=== PATIENT | female | born 1990 | race Caucasian/White ===

== ENCOUNTER 2018-02-26 17:09 | Emergency (ER) | payer MEDICAID, OTHER ==
[~2018-02-26] VITALS: Ht 157.5 cm; Wt 47.6 kg
[~2018-02-26 17:09] MED LIST: ACET1TAB34 PO; HYDR-922 PO; PREN1TAB59 PO
--- NOTE | 2018-02-26 17:15 | NUR ---
ARRIVAL PT ARRIVED AMBULATORY TO ER 6 C/O LOWER ABDOMINAL PAIN RADIATING TO BACK. PT ALSO C/O NAUSEA, VOMITING AND DIARRHEA. PT STATES HAS HAD BLOOD IN HER VOMIT AND STOOL. PT STATES SHE HAS CHRONIC PAIN AND TAKES PERCOCET EVERY 4 HOURS AND IBUPROFEN 800MG THREE TIMES DAILY SINCE 2011 WHEN A NERVE WAS DAMAGED DURING CHOLECYSTECTOMY. EDP NOTIFIED OF PT ARRIVAL.
[2018-02-26] MEDS ORDERED: ZOFRAN ODT SL STA (17:28)
[2018-02-26] MEDS ORDERED: SUBLIMAZE IM STA (17:28)
--- NOTE | 2018-02-26 17:33 | ER.PDOC ---
General Chief Complaint: Requesting Medical Care Stated Complaint: FEMALE Time seen by MD: 17:33 Source: patient Exam Limitations: no limitations History of Present Illness Initial Comments Lower abdominal pain from her ovarian cyst for 1 week, no vaginal discharge Timing/Duration: 1 week Severity/Quality: moderate, sharpness Associated Symptoms: nausea/vomiting Exacerbated by: movements Relieved By: remaining still Allergies: Coded Allergies: peanut (Verified Allergy, Severe, 09/18/15) ketorolac (Verified Allergy, Intermediate, RASH, HIVES, 09/18/15) mupirocin (Verified Allergy, Intermediate, PROJECTILE VOMITING, 09/18/15) tramadol (Verified Allergy, Intermediate, RASH, HIVES, 09/18/15) morphine (Verified Adverse Reaction, Severe, 09/18/15) HEADACHE Home Meds Reported Medications Vits W-Ca,Fe,Fa(<1MG) ( VITAMINS) 1 Each Tablet, 1 TAB PO DAILY , #90 TAB 3 Refills 09/15/15 Acetaminophen With Codeine (TYLENOL-COD #3 TABLET) 1 Each Tablet, 1 EACH PO Q4H PRN for PAIN, #30 TAB 09/15/15 Hydrocodone Bit/Acetaminophen (NORCO 10-325 TABLET) 10-325 T1 Ea Tab, 1 TAB PO BID, #60 TAB 09/15/15 Past Medical History Medical History: other Surgical History: appendectomy, cholecystectomy Social History Drug Use: other Reviewed Nursing Reviewed: Vital Signs, Abn. Noted Constitutional: no symptoms reported EENTM: no symptoms reported Respiratory: no symptoms reported Cardiovascular: no symptoms reported Gastrointestinal: see HPI Genitourinary: see HPI All Other Systems: Reviewed and Negative Physical Exam General Appearance: No Apparent Distress HEENT: PERRL/EOMI, Normal ENT Inspection, TMs Normal, Pharynx Normal Neck: Non-Tender, Full Range of Motion, Supple, Normal Inspection Respiratory: chest non-tender, lungs clear, normal breath sounds, no respiratory distress, no accessory muscle use Cardiovascular: Normal Peripheral Pulses, Regular Rate, Rhythm, No Edema, No Gallop, No JVD, No Murmur Gastrointestinal: Normal Bowel Sounds, No Organomegaly, No Pulsatile Mass, Tenderness (l inguinal area) Back: Normal Inspection, No CVA Tenderness, No Vertebral Tenderness Extremities: Normal Range of Motion, Non-Tender, Normal Inspection, No Pedal Edema, No Calf Tenderness, Normal Capillary Refill, Pelvis Stable Neurologic/Psychiatric: pastry decorator II-XII NML as Tested, No Motor/Sensory Deficits, Alert, Normal Mood/Affect, Oriented x 3 Skin: Normal Color, Warm/Dry Lymphatic: No Adenopathy Progress Progress DR HINOJOSA EKG/XRAY/CT/US Utrasound Comments: See report Course Vitals & review Data Current Medications Medications (Trade) Dose Ordered Sig/Fernando PRN Reason Start Time Stop Time Status Last Admin Fentanyl Citrate (Sublimaze) 100 mcg STAT STAT 02/26/18 17:28 02/26/18 17:29 Ondansetron HCl (Zofran Odt) 4 mg STAT STAT 02/26/18 17:28 02/26/18 17:29 Departure Time of Disposition: 19:52 Disposition: 01 HOME, SELF-CARE Impression: Primary Impression: Pelvic pain Condition: Stable Referrals: MAGNO MARAVILLA (PCP) PRIMARY CARE PROVIDER Additional Instructions: Tylenol #3 Zofran F/U with your Theatrical Scenic Designer as scheduled. Duration or Time Spent with Pa: 2 hours GEORGINA YAP MD Feb 26, 2018 17:33 PETER HINOJOSA MD Feb 26, 2018 19:56
[2018-02-26 17:47] LABS: BASOPHIL % 0.1 % (0.0-0.2); EOSINOPHIL # 0.1 10^3/uL (0.0-0.2); EOSINOPHIL % 1.1 % (0.0-5.0); HEMOGLOBIN 13.4 g/dL (12.0-15.0); LYMPHOCYTES # 1.3 10^3/uL (1.0-4.8); LYMPHOCYTES % 11.9 % (24.0-44.0); MEAN CELL HGB 29.3 pg (26-34); MEAN CELL HGB CONCENTRATION 34.4 g/dL (33-37); MEAN CORP VOLUME 85.1 fL (78-100); MEAN PLATELET VOLUME 9.8 fL (7.8-11.0); MONOCYTES % 8.9 % (5.0-12.0); NEUTROPHIL # 8.3 10^3/uL (1.8-7.7); NEUTROPHILS % 77.8 % (41.0-85.0); RED CELL DISTRIBUTION WIDTH 13.2 % (11.5-14.5); WHITE BLOOD CELL 10.6 10^3/uL (4.5-11.0)
--- NOTE | 2018-02-26 17:50 | NUR ---
US NEWSOME FROM RADIOLOGY INFORMED US THAT US WAS IN THE MIDDLE OF PROCEDURE AND WOULD BE WITH US WHEN SHE FINISHED.
[2018-02-26 17:52] VITALS: BP 120/81
[2018-02-26] MEDS ORDERED: SUBLIMAZE ONE (17:54)
[2018-02-26] MEDS ORDERED: ZOFRAN ODT ONE (17:54)
[2018-02-26 18:02] LABS: CALCIUM 8.8 mg/dL (8.4-10.5); CARBON DIOXIDE 24.7 mmol/L (20.0-32)
[2018-02-26 18:18] LABS: BILIRUBIN,URINE NEGATIVE (NEGATIVE); UROBILINOGEN,URINE NORMAL (NEGATIVE)
[2018-02-26 18:30] LABS: APPEARANCE,URINE CLEAR (CLEAR); UA COLOR YELLOW (YELLOW)
[2018-02-26 18:54] VITALS: BP 133/84
--- NOTE | 2018-02-26 19:02 | NUR ---
US PT BACK TO ROOM FROM US AT THIS TIME.
--- NOTE | 2018-02-26 19:36 | DIREP ---
PROCEDURE:US PELVIS COMPLETE COMPARISON:None. INDICATIONS:L inguinal pain TECHNIQUE:Pelvic ultrasound using transabdominal technique. Endovaginal images were also obtained for better assessment of the uterus and adnexa. FINDINGS: UTERUS:Anteverted. Normal size and echogenicity, measuring 6.7 x 5.3 x 3.7 cm. The myometrium is homogeneous. ENDOMETRIUM:Thickness is at the upper limits of normal for a premenopausal female, measuring 2.0 cm. RIGHT OVARY:Normal size and appearance, measuring 3.4 x 2.9 x 2.3 cm. A 2.3 cm corpus luteum/recently ruptured follicle is present. No cyst or solid mass. LEFT OVARY:Normal size and appearance, measuring 2.3 x 1.7 x 1.4 cm. Normal physiologic follicles. No cyst solid mass. CUL-DE-SAC:Trace physiologic pelvic free fluid. OTHER:Negative. CONCLUSION: 1. Endometrial thickness is the upper limits of normal for the patient's age, measuring 2.0 cm. This may be secondary to the phase of the patient's menstrual cycle. Endometrial hyperplasia and/or polyps are an additional consideration. Correlate for history of abnormal uterine bleeding. If indicated, follow-up ultrasound could be performed in 6 weeks for further evaluation. 2. 2.3 cm right ovarian corpus luteum/recently ruptured follicle, which is normal for age. The right ovary is otherwise unremarkable. 3. Normal left ovary. 4. Trace physiologic pelvic free fluid. Dictated by: Fabricio Galvan MD on 02/26/2018 at 07:27 PM
[2018-02-26 20:15] VITALS: BP 133/84
== END 2018-02-26 20:11 | disposition home or self-care (01) ==
LOC: ER 17:09
DX: R10.2 Pelvic and perineal pain (principal); R11.2 Nausea with vomiting, unspecified; N83.292 Other ovarian cyst, left side; Z91.010 Allergy to peanuts; Z88.1 Allergy status to other antibiotic agents; Z88.5 Allergy status to narcotic agent; Z88.6 Allergy status to analgesic agent; Z79.891 Long term (current) use of opiate analgesic; Z90.49 Acquired absence of other specified parts of digestive tract
CPT/HCPCS: 36415; 76830; 76856; 80053; 80307; 81000; 82150; 83690; 85025; 85610; 85730; 86677; 87086; 96372; 99285; J3010; Q0162

== ENCOUNTER 2019-09-07 19:41 | Emergency (ER) | payer OTHER ==
[~2019-09-07] VITALS: Ht 157.5 cm; Wt 52.2 kg
[~2019-09-07 19:41] MED LIST changes: +HYDR-3470 PO; -HYDR-922 PO
[2019-09-07 19:43] VITALS: BP 114/76
[2019-09-07 19:48] VITALS: BP 114/76
[2019-09-07] MEDS ORDERED: ZOFRAN ODT SL STA (19:58)
[2019-09-07] MEDS ORDERED: TYLENOL PO STA (19:58)
[2019-09-07] MEDS ORDERED: NS 1000ML 1,000 ML IV ONE (20:00)
--- NOTE | 2019-09-07 20:05 | NUR ---
ARRIVAL PT ARRIVED TO ER 3 VIA EMS STRETCHER WITH C/O LOWER ABD PAIN, BACK OF HEAD PAIN, NECK PAIN. PT STATES "EXTREME PAIN" WHEN URINATING. PT WAS SITTING ON TOILET AND BATHROOM AND GOT DIZZY AND FELL HITTING HEAD ON SINK. PT UNABLE TO DETERMINE IF OR HOW LONG SHE WAS UNCONSCIOUS. PT IS AAOX3.
[2019-09-07] MEDS ORDERED: ZOFRAN ODT ONE (20:06)
[2019-09-07] MEDS ORDERED: NS 1000ML 1,000 ML ONE ×2 (20:06→21:34)
[2019-09-07] MEDS ORDERED: TYLENOL PO ONE (20:07)
[2019-09-07 20:08] LABS: BILIRUBIN,URINE NEGATIVE (NEGATIVE); UROBILINOGEN,URINE NORMAL (NEGATIVE)
--- NOTE | 2019-09-07 20:09 | ER.PDOC ---
General Chief Complaint: Trauma Stated Complaint: FALL FROM STANDING Time seen by MD: 20:05 Source: patient, EMS Exam Limitations: no limitations History of Present Illness Initial Comments pt states she passed out after going to the bathroom to void; she struck her head and sustained unknown duration LOC; she c/o headache and right flank pain; she relates the right flank pain to a kidney stone she was diagnosed with 1 month ago Occurred: just prior to arrival Where: home Severity: moderate Location: occipital Method of Injury: fell Associated symptoms: Lost consciousness Remembers: injury, coming to hospital Allergies: Coded Allergies: peanut (Verified Allergy, Severe, 09/18/15) ketorolac (Verified Allergy, Intermediate, RASH, HIVES, 09/18/15) mupirocin (Verified Allergy, Intermediate, PROJECTILE VOMITING, 09/18/15) tramadol (Verified Allergy, Intermediate, RASH, HIVES, 09/18/15) morphine (Verified Adverse Reaction, Severe, 09/18/15) HEADACHE Home Meds Reported Medications Vits W-Ca,Fe,Fa(<1MG) ( VITAMINS) 1 Each Tablet, 1 TAB PO DAILY, #90 TAB 3 Refills 09/15/15 Acetaminophen With Codeine (TYLENOL-COD #3 TABLET) 1 Each Tablet, 1 EACH PO Q4H PRN for PAIN, #30 TAB 09/15/15 Hydrocodone Bit/Acetaminophen (NORCO 10-325 TABLET) 10-325 T1 Ea Tab, 1 TAB PO BID, #60 TAB 09/15/15 Past Medical History Medical History: other (history of kidney stone, rx'd 10 mg norco's--took 2 of these before fall) Surgical History: appendectomy, cholecystectomy, tubal Social History Alcohol Use: none Drug Use: none Review of Systems Constitutional: no symptoms reported Eyes: no symptoms reported Ears, Nose, Mouth, Throat: no symptoms reported Respiratory: no symptoms reported Cardiovascular: no symptoms reported Gastrointestinal: no symptoms reported Genitourinary: pain (right flank pain) Psychiatric/Neurological: see HPI, headache, other (syncope with HI and + LOC) Physical Exam General Appearance: Alert, No Apparent Distress Head: No Evidence of Injury Eye: PERRL Cardiovascular/Respiratory: Regular Rate, Rhythm Gastrointestinal: Normal Bowel Sounds, Non Tender, Soft Back: CVA Tenderness (R) Extremities: Normal Range of Motion, Non-Tender, Normal Inspection, No Pedal Edema, No Calf Tenderness NEURO/PSYCH: Alert, Oriented x3, Cooperative, Interactive Cranial Nerves: Normal Hearing, Normal Speech, PERRL Skin: Normal Color, Warm/Dry Lymphatic: No Adenopathy [place] Coma Score Best Eye Response: (4) Open Spontaneously Best Verbal Response: (5) Oriented Best Motor Response: (6) Obeys Commands Results/Orders Results/Orders Orders - SHANELLE COY DO Cbc With Auto Diff (09/07/19 19:58) Comprehensive Metabolic Panel (09/07/19 19:58) Urinalysis (09/07/19 19:58) Ekg-Routine (09/07/19 19:58) Ct Head Wo Contrast (09/07/19 19:58) Saline Lock (09/07/19 19:58) Ct Abd/Pelvis Wo Iv Contrast (09/07/19 19:58) Hcg Qualitative Serum (09/07/19 19:58) 0.9 % Sodium Chloride (Ns 1000ml) (09/07/19 20:00) Acetaminophen (Tylenol) (09/07/19 19:58) Ondansetron (Zofran Odt) (09/07/19 19:58) 0.9 % Sodium Chloride (Ns 1000ml) (09/07/19 20:06) Ondansetron (Zofran Odt) (09/07/19 20:06) Acetaminophen (Tylenol) (09/07/19 20:07) Urine Culture (09/07/19 20:00) Ondansetron Hcl/Pf (Zofran) (09/07/19 20:39) Ketorolac Tromethamine (Toradol) (09/07/19 20:39) Ketorolac Tromethamine (Toradol) (09/07/19 20:40) Ondansetron Hcl/Pf (Zofran) (09/07/19 20:40) Morphine Sulfate (Morphine Sulfate) (09/07/19 21:28) 0.9 % Sodium Chloride (Ns 1000ml) (09/07/19 21:34) Us Pelvic Non Ob (09/07/19 21:36) Morphine Sulfate (Morphine Sulfate) (09/07/19 21:40) Us Tv-Rug Hooker (09/07/19 21:41) Vital Signs Date Time Temp Pulse Resp B/P (MAP) Pulse Ox O2 Delivery O2 Flow Rate FiO2 09/07/19 22:44 79 20 107/58 (74) 98 Room Air 09/07/19 21:17 88 20 124/70 (88) 99 Room Air 09/07/19 19:48 18 09/07/19 19:48 98.2 92 20 114/76 (89) 97 Room Air 09/07/19 19:43 98.2 92 20 09/07/19 19:43 98.2 92 20 97 Administered Medications Medications (Trade) Dose Ordered Sig/Fernando Route PRN Reason Start Time Stop Time Status Last Admin Dose Admin Acetaminophen (Tylenol) 1,000 mg STAT STAT PO 09/07/19 19:58 09/07/19 20:06 DC 09/07/19 20:14 1,000 MG Ketorolac Tromethamine (Toradol) 30 mg STAT STAT IV 09/07/19 20:40 09/07/19 20:42 DC 09/07/19 20:46 30 MG Morphine Sulfate (Morphine Sulfate) 4 mg STAT STAT IV 09/07/19 21:40 09/07/19 21:41 DC 09/07/19 21:43 4 MG Ondansetron HCl (Zofran Odt) 4 mg STAT STAT SL 09/07/19 19:58 09/07/19 20:06 DC 09/07/19 20:14 4 MG Ondansetron HCl (Zofran) 4 mg STAT STAT IV 09/07/19 20:40 09/07/19 20:42 DC 09/07/19 20:46 4 MG Sodium Chloride 1,000 ml @ 1,200 mls/hr Q50M ONCE IV 09/07/19 20:00 09/07/19 20:49 DC 09/07/19 20:14 1,200 MLS/HR Laboratory Tests Test 09/07/19 20:00 09/07/19 20:13 Urine Collection Type VOID Urine Color YELLOW (YELLOW) Urine Appearance CLOUDY (CLEAR) H Urine Bilirubin NEGATIVE MG/DL (NEGATIVE) Urine Ketones NEGATIVE (NEGATIVE) Urine Specific [place] 1.000 (1.005-1.035) Urine pH 7 (5.0-6.0) Urine Protein NEGATIVE (NEGATIVE) Urine Urobilinogen NORMAL (NEGATIVE) Urine Nitrate NEGATIVE (NEGATIVE) Urine Leukocyte Esterase 500/uL 2+ (NEGATIVE) Urine Blood 25 1+ (NEGATIVE) H Urine RBC 0-2 RBC/HPF (NONE SEEN) Urine WBC 0-2 WBC/HPF (0-2) Urine Squamous Epithelial Cells MANY #/HPF (FEW) Urine Bacteria FEW (NONE SEEN) H Urine Glucose NORMAL (NEGATIVE) White Blood Count 7.9 10^3/uL (4.5-11.0) Red Blood Count 4.87 10^6/uL (4.00-5.20) Hemoglobin 13.8 g/dL (12.0-15.0) Hematocrit 41.0 % (36.0-46.0) Mean Corpuscular Volume 84.2 fL (78-100) Mean Corpuscular Hemoglobin 28.3 pg (26-34) Mean Corpuscular Hemoglobin Concent 33.7 g/dL (33-36.5) Red Cell Distribution Width 15.6 % (11.5-14.5) H Platelet Count 241 10^3/uL (150-400) Mean Platelet Volume 9.8 fL (7.8-11.0) Neutrophils (%) (Auto) 80.1 % (41.0-85.0) Lymphocytes (%) (Auto) 14.5 % (24.0-44.0) L Monocytes (%) (Auto) 4.7 % (5.0-12.0) L Neutrophils # (Auto) 6.3 10^3/uL (1.8-7.7) Lymphocytes # (Auto) 1.15 10^3/uL1 (1.0-4.8) Monocytes # (Auto) 0.4 10^3/uL (0.3-0.8) Absolute Immature Granulocyte (auto 0.01 10^3 u/L (0-2) Absolute Eosinophils (auto) 0.0 10^3/uL (0.0-0.2) Immature Granulocytes % 0.10 % (0.00-0.50) Eosinophils % 0.5 % (0.0-5.0) Basophils % 0.1 % (0.0-0.2) Basophils # 0.0 10^3/uL (0.0-0.1) Sodium Level 140 mmol/L (132-145) Potassium Level 4.2 mmol/L (3.6-5.2) Chloride Level 107.0 mmol/L (96-109) Carbon Dioxide Level 22.6 mmol/L (20.0-32) Anion Gap 14.6 Blood Urea Nitrogen 12 mg/dL (7-18) Creatinine 0.58 mg/dL (0.59-1.40) L Estimated GFR () 149.8 (>/=60) Est GFR (CKD-EPI)(Non-Afr Somali) 123.8 (>/=60) BUN/Creatinine Ratio 20.0 Glucose Level 110 mg/dL (70-110) Calcium Level 8.9 mg/dL (8.4-10.5) Total Bilirubin 0.4 mg/dL (0.2-1.0) Aspartate Amino Transferase (AST) 24 U/L (0-35) Alanine Aminotransferase (ALT) 44 U/L (12-78) Alkaline Phosphatase 81 U/L (50-136) Total Protein 8.2 g/dL (6.4-8.2) Albumin 4.1 g/dL (3.4-5.0) Globulin 4.1 Serum HCG, Qualitative NEGATIVE (NEGATIVE) Progress Progress Patient's toradol "allergy" = nausea; her morphine "allergy" = headache; when I explained she would not be receiving Dilaudid for her pain, she acquiesced to receive toradol or morphine EKG/XRAY/CT/US EKG: NSR, no ST T wave changes CT Comments: head normal; abd/pelvis sees 5.7 cm mass behind uterus Ultrasound: other (hemorrhagic cyst posterior to uterus 2.6x3.8x3.9cm) Course Sepsis Screening Results: Posi: POSITIVE SEPSIS RISK Duration or Total Time Spent w: 2 hours Vitals & review Data Vital Sign - Last 24 Hours 09/07/19 09/07/19 09/07/19 09/07/19 19:43 19:43 19:48 19:48 Temp 98.2 98.2 98.2 Pulse 92 92 92 Resp 20 20 20 18 B/P (MAP) 114/76 (89) Pulse Ox 97 97 O2 Delivery Room Air 09/07/19 09/07/19 21:17 22:44 Pulse 88 79 Resp 20 20 B/P (MAP) 124/70 (88) 107/58 (74) Pulse Ox 99 98 O2 Delivery Room Air Room Air Laboratory Tests Test 09/07/19 20:00 09/07/19 20:13 Urine Collection Type VOID Urine Color YELLOW Urine Appearance CLOUDY Urine Bilirubin NEGATIVE MG/DL Urine Ketones NEGATIVE Urine Specific [place] 1.000 Urine pH 7 Urine Protein NEGATIVE Urine Urobilinogen NORMAL Urine Nitrate NEGATIVE Urine Leukocyte Esterase 500/uL 2+ Urine Blood 25 1+ Urine RBC 0-2 RBC/HPF Urine WBC 0-2 WBC/HPF Urine Squamous Epithelial Cells MANY #/HPF Urine Bacteria FEW Urine Glucose NORMAL White Blood Count 7.9 10^3/uL Red Blood Count 4.87 10^6/uL Hemoglobin 13.8 g/dL Hematocrit 41.0 % Mean Corpuscular Volume 84.2 fL Mean Corpuscular Hemoglobin 28.3 pg Mean Corpuscular Hemoglobin Concent 33.7 g/dL Red Cell Distribution Width 15.6 % Platelet Count 241 10^3/uL Mean Platelet Volume 9.8 fL Neutrophils (%) (Auto) 80.1 % Lymphocytes (%) (Auto) 14.5 % Monocytes (%) (Auto) 4.7 % Neutrophils # (Auto) 6.3 10^3/uL Lymphocytes # (Auto) 1.15 10^3/uL1 Monocytes # (Auto) 0.4 10^3/uL Absolute Immature Granulocyte (auto 0.01 10^3 u/L Absolute Eosinophils (auto) 0.0 10^3/uL Immature Granulocytes % 0.10 % Eosinophils % 0.5 % Basophils % 0.1 % Basophils # 0.0 10^3/uL Sodium Level 140 mmol/L Potassium Level 4.2 mmol/L Chloride Level 107.0 mmol/L Carbon Dioxide Level 22.6 mmol/L Anion Gap 14.6 Blood Urea Nitrogen 12 mg/dL Creatinine 0.58 mg/dL Estimated GFR () 149.8 Est GFR (CKD-EPI)(Non-Afr Somali) 123.8 BUN/Creatinine Ratio 20.0 Glucose Level 110 mg/dL Calcium Level 8.9 mg/dL Total Bilirubin 0.4 mg/dL Aspartate Amino Transf (AST/SGOT) 24 U/L Alanine Aminotransferase (ALT/SGPT) 44 U/L Alkaline Phosphatase 81 U/L Total Protein 8.2 g/dL Albumin 4.1 g/dL Globulin 4.1 Serum HCG, Qualitative NEGATIVE O2 Sat by Pulse Oximetry: 97 Departure Time of Disposition: 23:16 Disposition: 01 HOME, SELF-CARE Impression: Primary Impression: Syncope and collapse Additional Impressions: Head injury Flank pain Hemorrhagic cyst of ovary Condition: Improved Patient Instructions: Flank Pain, Head Injury, Adult, Ovarian Cyst, Syncope Referrals: MAGNO MARAVILLA (PCP) PRIMARY CARE PROVIDER Additional Instructions: Return to ER for any emergent concerns. Follow up with your OB doctor this week. Take OTC Motrin 800 mg every 8 hours with food for pain. Duration or Time Spent with Pa: 20 min Problem Qualifiers Additional Impressions: Head injury Encounter type: initial encounter Qualified Codes: S09.90XA - Unspecified injury of head, initial encounter SHANELLE COY DO Sep 07, 2019 20:09
--- NOTE | 2019-09-07 20:13 | PCM.EKG ---
[facility] Test Date: 2019-09-07 Test Time: 20:06:41 Pat Name: OSVALDO MITCHELL Department: Patient ID: [id number] Room: Gender: F Field Advisor: VINIAT : 1990 Requested By: SHANELLE MCCURDY Order Number: [id number] Reading MD: Madai Mccurdy Measurements Intervals [place] Rate: 81 P: 56 [place]: 127 QRS: -22 QRSD: 107 T: 45 QT: 379 QTc: 440 Interpretive Statements Sinus arrhythmia Incomplete RBBB and LAFB No previous ECG available for comparison Electronically Signed On 09-10-2019 7:01:53 DIRECTOR OF PATIENT CARE by Madai Mccurdy Please click the below link to view image of tracing.
[2019-09-07 20:19] LABS: APPEARANCE,URINE CLOUDY (CLEAR); UA COLOR YELLOW (YELLOW)
[2019-09-07 20:22] LABS: BASOPHIL % 0.1 % (0.0-0.2); EOSINOPHIL % 0.5 % (0.0-5.0); LYMPHOCYTES # 1.15 10^3/uL1 (1.0-4.8); LYMPHOCYTES % 14.5 % (24.0-44.0); MEAN CORP HGB 28.3 pg (26-34); MONOCYTES # 0.4 10^3/uL (0.3-0.8); MONOCYTES % 4.7 % (5.0-12.0); NEUTROPHIL # 6.3 10^3/uL (1.8-7.7); NEUTROPHILS % 80.1 % (41.0-85.0); PLATELET COUNT 241 10^3/uL (150-400); RED CELL DISTRIBUTION WIDTH 15.6 % (11.5-14.5)
[2019-09-07 20:34] LABS: CALCIUM 8.9 mg/dL (8.4-10.5); CARBON DIOXIDE 22.6 mmol/L (20.0-32)
[2019-09-07] MEDS ORDERED: TORADOL ONE (20:39)
[2019-09-07] MEDS ORDERED: ZOFRAN ONE (20:39)
[2019-09-07] MEDS ORDERED: ZOFRAN IV STA (20:40)
[2019-09-07] MEDS ORDERED: TORADOL IV STA (20:40)
[2019-09-07 21:17] VITALS: BP 124/70
--- NOTE | 2019-09-07 21:22 | DIREP ---
PROCEDURE:CT HEAD OR BRAIN W/O CONTRAST COMPARISON:None. INDICATIONS:fall, head injury with LOC TECHNIQUE:CT images were created without intravenous contrast. FINDINGS: VENTRICLES:The ventricles are normal in size and configuration. CEREBRUM:Normal cerebral morphology with appropriate puente white matter differentiation. CEREBELLUM:Negative. BRAINSTEM:Negative. BASAL CISTERNS:Negative. HEMORRHAGE:No MASS LESION:No ACUTE INFARCT:No SKULL:Normal. SINUSES:Normal. OTHER:None CONCLUSION:No abnormality noted. Dictated by: Jeannette Hernández M.D. on 09/07/2019 at 09:20 PM
--- NOTE | 2019-09-07 21:26 | DIREP ---
PROCEDURE:CT ABDOMEN/PELVIS W/O CONTRAST COMPARISON:None. INDICATIONS:kidney stone TECHNIQUE:Axial images were created through the abdomen and pelvis without intravenous contrast material. No oral contrast was administered. Sagittal and coronal reconstructions were performed from source images. FINDINGS: URINARY TRACT:Normal. No focal lesions or hydronephrosis. No nephrolithiasis. Evaluation the remaining structures is limited without intravenous contrast. LUNG BASES:Normal. No visible pulmonary or pleural disease. LIVER:Normal. No significant liver lesions are identified. BILIARY:The gallbladder surgically absent. PANCREAS:Normal. No lesion, fluid collection, ductal dilatation, or atrophy. SPLEEN:Normal. No enlargement or focal lesion. ADRENALS:Normal. No mass or enlargement. AORTA/VASCULAR:Normal. No aneurysm. RETROPERITONEUM:Normal. No mass or adenopathy. BOWEL/MESENTERY:Normal. There is no intestinal obstruction, free fluid, free air or mesenteric inflammatory changes. ABDOMINAL WALL:Normal. No mass or hernia. PELVIC ORGANS:A heterogeneously hypo attenuating rounded lesion is seen in the midline posterior to the uterus. This measures 5.3 cm transverse by 5.7 cm AP x 5.3 cm craniocaudal. The uterus and adnexa are otherwise within normal limits. BONES:Normal for age. No bony lesion or acute fracture. OTHER:Negative. CONCLUSION:1. No CT evidence for urolithiasis. 2. 5.7 cm heterogeneously hypo attenuating pelvic mass common medially behind the uterus. This likely represents an ovarian/adnexal mass. Differential includes hemorrhagic cyst, dermoid or less likely neoplasm. Consider pelvic ultrasound for further characterization. Dictated by: Jeannette Hernández M.D. on 09/07/2019 at 09:21 PM
[2019-09-07] MEDS ORDERED: MORPHINE SULFATE ONE (21:28)
--- NOTE | 2019-09-07 21:29 | NUR ---
Ultrasound Keyla masonry instructor for ultrasound sound notified of need for ultrasound
[2019-09-07] MEDS ORDERED: MORPHINE SULFATE IV STA (21:40)
--- NOTE | 2019-09-07 21:43 | NUR ---
NS SECOND LITER OF NS BOLUS STARTED AT THIS TIME PER VERBAL ORDER FROM DR. COY.
--- NOTE | 2019-09-07 21:55 | NUR ---
US HAIR, US TAKING PT FOR US AT THIS TIME VIA WHEELCHAIR.
--- NOTE | 2019-09-07 22:37 | NUR ---
UPDATE PT BACK TO ROOM FROM US AT THIS TIME.
[2019-09-07 22:44] VITALS: BP 107/58
--- NOTE | 2019-09-07 23:11 | DIREP ---
PROCEDURE:US PELVIS COMPLETE COMPARISON:[facility], CT, CT ABD/PELVIS W/O, 09/07/2019, 09:04 PM. [facility], US, US PELVIS COMPLETE, 02/26/2018, 06:40 PM. INDICATIONS:mass behind uterus TECHNIQUE:Pelvic ultrasound using transabdominal technique. Endovaginal images were also obtained for better assessment of the uterus and adnexa. FINDINGS: UTERUS:Size is 7.7 x 4 x 5.3 cm. The myometrium is homogeneous. ENDOMETRIUM:Thickness is 13 mm. Ovaries:There is an ovary in the posterior midline with a hemorrhagic cyst with retracting clot measures 2.6 x 3.8 x 3.9 cm. Technologist indicates this originates in the left ovary but a posterior midline position could represent either ovary. The 2nd ovary is not seen. CUL-DE-SAC:Normal. OTHER:Negative. CONCLUSION:Posterior to the uterus is a hemorrhagic cyst with retracting clot associated with an ovary. It is unclear on these images if this is a left or right ovary in the midline posterior pelvis. The contralateral ovary is not seen. Dictated by: Obi Ovalle M.D. on 09/07/2019 at 11:05 PM
--- NOTE | 2019-09-07 23:29 | NUR ---
UPDATE PT REQUESTING EMS TO BE DISPATCHED TO TRANSFER PT TO ANOTHER HOSPITAL FOR A SECOND OPINION. PT HAS BEEN DISCHARGED FROM THIS ER. DISPATCH ON PHONE NOW ASKING WHAT PT IS DOING.
--- NOTE | 2019-09-07 23:30 | NUR ---
update Patient stating "I want to be transferred to a different hospital because I am in too much pain for there to not be anything wrong". Dr Mccurdy notified. Dr Mccurdy stating "Patient has received a full work up and does not require a transfer to a different hospital. Patient is more than welcome to call dispatch after discharge to see if they will take her to a different hospital"
--- NOTE | 2019-09-07 23:32 | NUR ---
Dispatch Spoke with dispatch regarding situation. Dispatch stated that patient can call 911 after discharge from hospital if she wants too. Patient notified
[2019-09-07 23:36] VITALS: BP 125/79
--- NOTE | 2019-09-07 23:48 | NUR ---
[facility] Dr Mccurdy on phone with Priyank from [facility]
--- NOTE | 2019-09-07 23:51 | NUR ---
soaking pits supervisor Patient in lobby and has spoken with dispatch about transfer. Janna warehouse stocker notified of situation
--- NOTE | 2019-09-07 23:58 | NUR ---
Update Patient in lobby with no signs of distress noted. Patient alert. Notified patient that retail warehouse associate is coming to speak with her. Patient verbalized understanding
--- NOTE | 2019-09-08 | NUR ---
Dr Mccurdy speaking with housekeeper nanny regarding patient situation
--- NOTE | 2019-09-08 00:13 | NUR ---
ELIJAH Saldivar malthouse laborer spoke with patient in [facility] lobby. Patient states that she will call her for transport home. Asked patient if she would like to come back to unit so we could monitor her until arrives for any signs of distress. Patient refused and states that she will wait in [facility] lobby.
--- NOTE | 2019-09-08 01:06 | NUR ---
UPDATE Patient in [facility] lobby awaiting transport from . Patient alert and ambulatory at this time with no signs of distress noted
== END 2019-09-07 23:38 | disposition home or self-care (01) ==
LOC: EDBD 19:41 → ER 19:41
DX: S09.90XA Unspecified injury of head, initial encounter (principal); R55 Syncope and collapse; N83.209 Unspecified ovarian cyst, unspecified side; Z79.899 Other long term (current) drug therapy; Z79.1 Long term (current) use of non-steroidal anti-inflammatories (NSAID); Z88.5 Allergy status to narcotic agent; Z87.442 Personal history of urinary calculi; Z88.8 Allergy status to other drugs, medicaments and biological substances; Z90.49 Acquired absence of other specified parts of digestive tract; W18.30XA Fall on same level, unspecified, initial encounter; Y93.89 Activity, other specified; Y92.098 Other place in other non-institutional residence as the place of occurrence of the external cause; Y99.8 Other external cause status
CPT/HCPCS: 36415; 70450; 74176; 76830; 76856; 80053; 81000; 84703; 85025; 87086; 93005; 96361; 96374; 96375; 99285; A9150; J1885; J2270; J2405; J7030 ×2; Q0162